=== PATIENT | female | born 1975 | race Caucasian/White ===

== ENCOUNTER 2019-02-19 13:01 | Emergency (ER) | payer SELFPAY ==
[~2019-02-19] VITALS: Ht 154.9 cm; Wt 65.5 kg
[2019-02-19 13:07] VITALS: BP 133/78; PULSE 71; RESP 18; Ht 154.9 cm; Wt 65.5 kg
--- NOTE | 2019-02-19 13:42 | ERD ---
ER Documentation Chief Complaint Chief Complaint RIGHT HEARING LOSS X 1 WEEK HPI 43-year-old female presents with complaint of diminished hearing from her right ear for the past week. Denies any other symptoms including fevers, headache, vertigo, dizziness, tinnitus. Denies medical problems. Denies any treatments. ROS All systems reviewed and are negative except as per history of present illness. FmHx Family History: No diabetes, No coronary disease, No other Physical Exam Vitals Vital Signs Date Temp Pulse Resp B/P (MAP) Pulse Ox O2 O2 Flow FiO2 Time Delivery Rate 02/19/19 99.0 71 18 133/78 99 13:07 (96) Physical Exam Const: No acute distress Head: Atraumatic Eyes: Normal Conjunctiva ENT: Normal External Ears, Nose and Mouth. Right ear canal is impacted with cerumen. No discharge noted. No mastoid tenderness, erythema, or edema noted. Neck: Full range of motion. No meningismus. Resp: Clear to auscultation bilaterally Cardio: Regular rate and rhythm, no murmurs Abd: Soft, non tender, non distended. Normal bowel sounds Skin: No petechiae or rashes Back: No midline or flank tenderness Ext: No cyanosis, or edema Neur: Awake and alert Psych: Normal Mood and Affect Procedures/MDM MDM: Patient's presentation is consistent with cerumen impaction of the right ear. Cerumen was removed through irrigation. TM was visualized is non- edematous, erythematous, and intact. There is no discharge noted in the canal. Low suspicion for otitis media, otitis externa, ruptured TM, acoustic neuroma, mastoiditis, or any other emergent condition. Patient discharged with strict ER precautions. Patient advised to follow up with PMD. All questions answered at discharge. Departure Diagnosis: Primary Impression: Cerumen impaction Laterality: right Qualified Codes: H61.21 - Impacted cerumen, right ear Condition: Stable CORRINA CARLIN Feb 19, 2019 13:42
== END 2019-02-19 16:05 | disposition left against medical advice (07) ==
LOC: FTE 13:01
DX: H61.21 Impacted cerumen, right ear (principal)